=== PATIENT | male | born 1960 | race Caucasian/White ===

== ENCOUNTER 2018-01-19 06:59 | Day surgery (SDC) | payer OTHER ==
[2018-01-14 14:02] VITALS: BMI 35.0
[~2018-01-19 06:59] MED LIST: LACTATED RINGERS 1,000 ML IV SCH; LIDOCAINE 1% 20 ML VIAL (10MG/ML) FOR IV START INTRADERMA PRN
[2018-01-19 07:43] VITALS: RESP 18; TEMP 98.1
[2018-01-19] MEDS ORDERED: LACTATED RINGERS 1,000 ML IV ONE ×2 (07:50)
[2018-01-19 07:55] LABS: Glucose,Whole Blood 112 mg/dL (75-99)
[2018-01-19] MEDS ORDERED: PROPOFOL 10 MG/ML 20 ML VIAL IV ONE (08:08)
[2018-01-19] MEDS ORDERED: LIDOCAINE 1% INJ 10MG/ML (20 ML MDV) ONE (08:08)
--- NOTE | 2018-01-19 08:11 | P.GSHP ---
History of Present Illness H&P Date: 01/19/18 CHIEF COMPLAINT: Colon screen HISTORY OF PRESENT ILLNESS: The patient is a 57-year-old male who presents for colon screen. Lower endoscopy was offered for further evaluation and management. PAST MEDICAL HISTORY: Please see list. PAST SURGICAL HISTORY: Please see list. MEDICATIONS: Please see list. ALLERGIES: Please see list. SOCIAL HISTORY: No illicit drug use FAMILY HISTORY: No reports of Crohn disease or ulcerative colitis. REVIEW OF ORGAN SYSTEMS: CONSTITUTIONAL: No reports of fevers or chills. PHYSICAL EXAM: VITAL SIGNS: Stable GENERAL: Well-developed pleasant in no acute distress. HEENT: No scleral icterus. Extraocular movements grossly intact. Moist buccal mucosa. NECK: Supple without lymphadenopathy. CHEST: Unlabored respirations. Equal bilateral excursions. CARDIOVASCULAR: Regular rate and rhythm. Distal 2+ pulses. ABDOMEN: Soft, nontender, nondistended. MUSCULOSKELETAL: No clubbing, cyanosis, or edema. ASSESSMENT: 1. Colon screen. PLAN: 1. Recommend proceeding with a lower endoscopy Past Medical History Past Medical History: Diabetes Mellitus, Hyperlipidemia, Hypertension Additional Past Medical History / Comment(s): BIPIN FEET NEUROPATHY History of Any Multi-Drug Resistant Organisms: None Reported Past Surgical History: Heart Catheterization Additional Past Surgical History / Comment(s): SX ON THROAT FOR "CALCIUM BUILDUP " Past Anesthesia/Blood Transfusion Reactions: No Reported Reaction Smoking Status: Former smoker - Past Family History Mother Family Medical History: No Reported History Medications and Allergies Home Medications Medication Instructions Recorded Confirmed Type Aspirin 81 mg PO DAILY 09/03/14 01/14/18 History Atorvastatin [Lipitor] 20 mg PO DAILY 09/03/14 01/14/18 History Losartan [Cozaar] 100 mg PO DAILY 09/03/14 01/14/18 History Cholecalciferol (Vitamin D3) 2,000 unit PO DAILY 01/14/18 01/14/18 History [Vitamin D3] Gabapentin [Neurontin] 100 mg PO QAM 01/14/18 01/14/18 History Gabapentin [Neurontin] 200 mg PO HS 01/14/18 01/14/18 History amLODIPine [Norvasc] 2.5 mg PO QAM 01/14/18 01/14/18 History metFORMIN HCL [Glucophage] 850 mg PO BID 01/17/18 01/17/18 History Allergies Allergy/AdvReac Type Severity Reaction Status Date / Time No Known Allergies Allergy Verified 01/14/18 15:10 Surgical - Exam Vital Signs Temp Pulse Resp BP Pulse Ox 98.1 F 82 18 139/84 96 01/19/18 07:41 01/19/18 07:41 01/19/18 07:41 01/19/18 07:41 01/19/18 07:41 Results - Labs Abnormal Lab Results - Last 24 Hours (Table) 01/19/18 Range/Units 07:50 POC Glucose (mg/dL) 112 H (75-99) mg/dL
--- NOTE | 2018-01-19 08:34 | P.PCN ---
Date of Procedure: 01/19/18 Description of Procedure: PREOPERATIVE DIAGNOSIS: Colonoscopy screening, first. POSTOPERATIVE DIAGNOSIS: Colonoscopy screening, first. Multiple tubular adenomas throughout the colon. Diverticulosis of the descending colon and sigmoid colon External hemorrhoids, grade 2. OPERATION: Colonoscopy to the ileocecal valve and appendiceal orifice. Colonoscopy with multiple cold forceps biopsies. SURGEON: Lennie Pabon MD. ANESTHESIA: MAC. INDICATIONS: The patient is a 57-year-old male who presents for his first colonoscopy screening. Benefits and risks were described and informed consent was obtained. DESCRIPTION OF PROCEDURE: The patient had undergone Gatorade, MiraLAX and Dulcolax prep. He had been brought into the operating room and laid in the left lateral decubitus position. After adequate intravenous sedation, the rectum was examined with 2% lidocaine jelly. The prostate was smooth without nodularity. External hemorrhoids were encountered. The rectal tone was within normal limits. No lesions were palpated in the rectal vault. An Olympus colonoscope was advanced until the ileocecal valve and appendiceal orifice were clearly viewed. The prep was fair with visualization of the mucosal folds. The scope was removed with visualization of each mucosal fold. Scattered diverticulosis was encountered. Multiple colonic polyps were found and cold forcep biopsy. No evidence of focal colitis was found. Retroflexion of the scope demonstrated no grade 1 internal hemorrhoids without active bleeding or inflammation. The colon was desufflated. The patient had tolerated the procedure well. Withdrawal time was over 6 minutes. FINDINGS: External hemorrhoids, grade 2. No arteriovenous malformations. Diverticulosis affecting descending colon and sigmoid colon Removal of 3 polyps from the proximal, mid transverse colon and descending colon : - Cold forceps biopsy at 30 cm from the anal verge, 3 mm polyp. - Cold forceps biopsy at 28 cm from the anal verge, 4 mm polyp. - Cold forceps biopsy at 20 cm from the anal verge, 3 mm polyp. No focal colitis. RECOMMENDATIONS: Repeat colonoscopy 3 years, 2020 Plan - Discharge Summary New Discharge Prescriptions: No Action Losartan [Cozaar] 100 mg PO DAILY Aspirin 81 mg PO DAILY Atorvastatin [Lipitor] 20 mg PO DAILY amLODIPine [Norvasc] 2.5 mg PO QAM Gabapentin [Neurontin] 100 mg PO QAM Gabapentin [Neurontin] 200 mg PO HS Cholecalciferol (Vitamin D3) [Vitamin D3] 2,000 unit PO DAILY metFORMIN HCL [Glucophage] 850 mg PO BID Discharge Medication List Aspirin 81 mg PO DAILY 09/03/14 [History] Atorvastatin [Lipitor] 20 mg PO DAILY 09/03/14 [History] Losartan [Cozaar] 100 mg PO DAILY 09/03/14 [History] Cholecalciferol (Vitamin D3) [Vitamin D3] 2,000 unit PO DAILY 01/14/18 [History] Gabapentin [Neurontin] 100 mg PO QAM 01/14/18 [History] Gabapentin [Neurontin] 200 mg PO HS 01/14/18 [History] amLODIPine [Norvasc] 2.5 mg PO QAM 01/14/18 [History] metFORMIN HCL [Glucophage] 850 mg PO BID 01/17/18 [History]
[2018-01-19 08:45] VITALS: BP 104/72; PULSE 72
== END 2018-01-19 09:15 | disposition home or self-care (01) ==
LOC: ORWHC2ENDO 06:59
PROVIDERS: ATTEND Surgery Plastic and Reconstructive Surgery
DX: Z12.11 Encounter for screening for malignant neoplasm of colon (principal); K63.5 Polyp of colon; K57.30 Diverticulosis of large intestine without perforation or abscess without bleeding; K64.4 Residual hemorrhoidal skin tags; E78.5 Hyperlipidemia, unspecified; I10 Essential (primary) hypertension; E11.40 Type 2 diabetes mellitus with diabetic neuropathy, unspecified; Z87.891 Personal history of nicotine dependence; Z79.84 Long term (current) use of oral hypoglycemic drugs; Z79.82 Long term (current) use of aspirin; Z79.899 Other long term (current) drug therapy
CPT/HCPCS: 88305; 45380; J2001; J2704

== ENCOUNTER → 2018-07-27 | Outpatient (CLI) | payer OTHER ==
[2018-07-27 16:13] LABS: HCT 41.1 % (39.0-53.0); HGB 13.9 gm/dL (13.0-17.5); MCH 28.9 pg (25.0-35.0); MCHC 33.9 g/dL (31.0-37.0); MCV 85.2 fL (80.0-100.0); Mean Platelet Volume 7.2; Platelet Count 297 k/uL (150-450); RBC 4.82 m/uL (4.30-5.90); WBC 9.4 k/uL (3.8-10.6)
[2018-07-27 16:35] LABS: Anion Gap 11 mmol/L; Blood Urea Nitrogen 16 mg/dL (9-20); Carbon Dioxide 25 mmol/L (22-30); Chloride 105 mmol/L (98-107); Potassium 4.6 mmol/L (3.5-5.1); Sodium 141 mmol/L (137-145)
== END | disposition home or self-care (01) ==
LOC: LABPAT 15:17
PROVIDERS: ATTEND Internal Medicine Interventional Cardiology
DX: Z01.812 Encounter for preprocedural laboratory examination (principal); I10 Essential (primary) hypertension; E78.2 Mixed hyperlipidemia; E11.9 Type 2 diabetes mellitus without complications; R94.39 Abnormal result of other cardiovascular function study
CPT/HCPCS: 80051; 82565; 84520; 85027

== ENCOUNTER → 2023-02-08 | Outpatient (CLI) | payer OTHER ==
[2023-02-08 15:38] LABS: Basophils # (A) 0.07 X 10*3/uL (0.00-0.10); Basophils % (A) 0.8 %; Eosinophils # (A) 0.39 X 10*3/uL (0.04-0.35); Eosinophils % (A) 4.7 %; HCT 48.6 % (39.6-50.0); HGB 15.5 g/dL (13.0-17.0); Immature Grans, Automated 0.4 %; Lymphocytes # (A) 1.69 X 10*3/uL (0.90-5.00); Lymphocytes % (A) 20.4 %; MCH 27.3 pg (27.0-32.0); MCHC 31.9 g/dL (32.0-37.0); MCV 85.6 fL (80.0-97.0); Mean Platelet Volume 10.7 fL (9.5-12.2); Monocytes # (A) 0.98 X 10*3/uL (0.20-1.00); Monocytes % (A) 11.9 %; NRBC Per 100 WBC 0 /100 WBCS (0.0-0.0); Neutrophils # (A) 5.11 X 10*3/uL (1.80-7.70); Neutrophils % (A) 61.8 %; Platelet Count 308 X 10*3/uL (140-440); RBC 5.68 X 10*6/uL (4.40-5.60); RDW 12.7 % (11.5-14.5); WBC 8.27 X 10*3/uL (4.50-10.00)
[2023-02-08 16:14] LABS: African American GFR (CKD) 111.7 (60.0-200.0); Albumin 4.2 g/dL (3.8-4.9); Albumin/Globulin Ratio 1.35 (1.60-3.17); Anion Gap 13.6 mmol/L (10.00-18.00); Blood Urea Nitrogen 10.4 mg/dL (9.0-27.0); Calcium 9.7 mg/dL (8.7-10.3); Carbon Dioxide 23.4 mmol/L (20.0-27.5); Globulin 3.1 g/dL (1.6-3.3); Non-African American GFR(CKD) 96.4 (60.0-200.0); Potassium 4.8 mmol/L (3.5-5.5); Total Bilirubin 0.3 mg/dL (0.30-1.20); Total Protein 7.3 g/dL (6.2-8.2)
== END | disposition home or self-care (01) ==
LOC: LABWHC1 11:53
PROVIDERS: ATTEND Family Medicine
DX: Z12.5 Encounter for screening for malignant neoplasm of prostate (principal); I10 Essential (primary) hypertension; E11.9 Type 2 diabetes mellitus without complications
CPT/HCPCS: 36415; 80053; 83036; 84153; 85025

== ENCOUNTER → 2023-09-20 | Outpatient (CLI) | payer OTHER ==
[2023-09-20 16:06] LABS: ALT 44 U/L (10-49); AST 27 U/L (14-35); Albumin 4.4 g/dL (3.8-4.9); Albumin/Globulin Ratio 1.33 Ratio (1.60-3.17); Alkaline Phosphatase 98 U/L (41-126); BUN/Creat Ratio 19.11 Ratio (12.00-20.00); Blood Urea Nitrogen 17.2 mg/dL (9.0-27.0); Calcium 10.3 mg/dL (8.7-10.3); Carbon Dioxide 24.4 mmol/L (21.6-31.8); Chloride 100 mmol/L (96-109); Chol/HDL Ratio 3.42 Ratio; Globulin 3.3 g/dL (1.6-3.3); Glucose 165 mg/dL (70-110); LDL Cholesterol,Calculated 76.8 mg/dL (0.0-131.0); Potassium 5.3 mmol/L (3.5-5.5); Prostate Specific Antigen 2.72 ng/mL (0.000-4.500); Sodium 140 mmol/L (135-145); Total Bilirubin 0.4 mg/dL (0.3-1.2); Total Protein 7.7 g/dL (6.2-8.2)
[2023-09-20 16:17] LABS: Basophils # (A) 0.07 X 10*3/uL (0.00-0.10); Basophils % (A) 0.9 %; Eosinophils # (A) 0.22 X 10*3/uL (0.04-0.35); Eosinophils % (A) 2.8 %; HCT 50.1 % (39.6-50.0); Lymphocytes # (A) 1.62 X 10*3/uL (0.90-5.00); Lymphocytes % (A) 20.5 %; MCH 26.9 pg (27.0-32.0); MCHC 31.9 g/dL (32.0-37.0); MCV 84.2 FL (80.0-97.0); Mean Platelet Volume 10.7 FL (9.5-12.2); Monocytes # (A) 0.94 X 10*3/uL (0.20-1.00); Monocytes % (A) 11.9 %; NRBC Per 100 WBC 0 X 10*3/uL (0.00-0.01); Neutrophils # (A) 5.02 X 10*3/uL (1.80-7.70); Neutrophils % (A) 63.4 %; Platelet Count 338 X 10*3/uL (140-440); RBC 5.95 X 10*6/uL (4.40-5.60); RDW 13.7 % (11.5-14.5); WBC 7.91 X 10*3/uL (4.50-10.00)
== END | disposition home or self-care (01) ==
LOC: LABWHC1 09:22
PROVIDERS: ATTEND Family Medicine
DX: Z00.00 Encounter for general adult medical examination without abnormal findings (principal); Z12.5 Encounter for screening for malignant neoplasm of prostate; E55.9 Vitamin D deficiency, unspecified; E11.9 Type 2 diabetes mellitus without complications
CPT/HCPCS: 36415; 80053; 80061; 82306; 83036; 84153; 85025